=== PATIENT | female | born 1960 | race Caucasian/White ===

== ENCOUNTER → 2016-11-16 | Outpatient (CLI) | payer OTHER ==
[~2016-11-16] MED LIST: DELTASONE1 MG; DIFLUCAN150 MG; DITROPAN5 MG; ECOTRIN325 MG; LIPITOR20 MG; MOBIC15 MG; NAFTIFINE HCL45 GM; THERA-VITE W/ B1 TAB; ZYRTEC10 MG
== END ==
LOC: GBCOE 07:21
DX: Z12.31 Encounter for screening mammogram for malignant neoplasm of breast (principal)
CPT/HCPCS: G0202